=== PATIENT | female | born 1960 | race Caucasian/White ===

== ENCOUNTER → 2017-10-24 | Outpatient (CLI) | payer OTHER | END | disposition home or self-care (01) | LOC: KCIC MRI 15:01 | DX: M51.16 Intervertebral disc disorders with radiculopathy, lumbar region (principal); M48.061 Spinal stenosis, lumbar region without neurogenic claudication | CPT/HCPCS: 72148 ==

== ENCOUNTER 2017-12-25 13:34 | Emergency (ER) | payer OTHER | END 2017-12-25 14:28 | disposition home or self-care (01) | LOC: ER 13:34 | DX: B88.8 Other specified infestations (principal); L08.9 Local infection of the skin and subcutaneous tissue, unspecified; E11.9 Type 2 diabetes mellitus without complications; M79.7 Fibromyalgia | CPT/HCPCS: 99283 ==